=== PATIENT | female | born 1970 | race Caucasian/White ===

== ENCOUNTER 2018-03-07 15:26 | Emergency (ER) | payer OTHER ==
[~2018-03-07 15:26] MED LIST: DIAZ-305 PO; IBUP-136 PO; LORA-802 PO; MOTRIN; NAPR-1043; PRED-1 PO
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
[2018-03-07 16:36] LABS: PLATELET COUNT, AUTOMATED 257 K/uL (150-450)
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
[2018-03-07 18:36] VITALS: BP 130/85
[2018-03-07] MEDS ORDERED: NICOTINE 21 MG/24 HR PATCH TD ONE (18:45)
[2018-03-08] MEDS ORDERED: METH5TAB87 PO (02:31)
[2018-03-08] MEDS ORDERED: NICO-218 TD (11:34)
== END 2018-03-07 19:20 ==
LOC: ER 15:52
DX: F10.920 Alcohol use, unspecified with intoxication, uncomplicated (principal); R45.851 Suicidal ideations; E07.9 Disorder of thyroid, unspecified; E05.00 Thyrotoxicosis with diffuse goiter without thyrotoxic crisis or storm
CPT/HCPCS: 36415; 80305; 80320; 80329; 81001; 82040; 82247; 82310; 82374; 82435; 82565; 82947; 83735; 84075; 84132; 84155; 84295; 84443; 84450; 84460; 84520; 84703; 85025; 99284

== ENCOUNTER 2018-03-07 18:35 | Inpatient (IN) | payer OTHER ==
[~2018-03-07] VITALS: Ht 167.6 cm; Wt 78.0 kg
[2018-03-07] MEDS ORDERED: NICOTINE INH SYSTEM 10 MG/INH INH PRN (20:05)
[2018-03-07] MEDS ORDERED: NICOTINE CARTRIDGE 1 EA PO ONE (20:10)
[2018-03-07] MEDS ORDERED: MAG HYD/AL HYD/SIMETH 30ML UDC PO PRN (23:45)
[2018-03-07] MEDS ORDERED: IBUPROFEN 200 MG TAB PO PRN (23:50)
[2018-03-08] VITALS: BP 114/81
[2018-03-08] MEDS ORDERED: LORazepam 1 MG TAB PO ONE (02:15)
[2018-03-08 02:20] VITALS: BP 121/78
[2018-03-08] MEDS ORDERED: hydrOXYzine 25 MG TAB PO PRN (02:30)
[2018-03-08] MEDS ORDERED: METH5TAB87 PO (02:31)
[2018-03-08] MEDS ORDERED: hydrOXYzine PAMOATE 25 MG CAP PO PRN (02:45)
[2018-03-08] MEDS ORDERED: NICOTINE 21 MG/24 HR PATCH TD SCH (09:00)
[2018-03-08] MEDS ORDERED: MULTIVITAMINS TAB PO SCH (09:00)
[2018-03-08] MEDS ORDERED: THIAMINE HCL 100 MG TAB PO SCH (09:00)
[2018-03-08] MEDS ORDERED: FOLIC ACID 1 MG TAB PO SCH (09:00)
[2018-03-08 09:44] VITALS: BP 131/78
[2018-03-08] MEDS ORDERED: NICO-218 TD (11:34)
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
== END 2018-03-08 12:40 | disposition home or self-care (01) | DRG 882 ==
LOC: BHS 18:35
PROVIDERS: ADMIT Registered Nurse Psychiatric/Mental Health, Adult; ATTEND Registered Nurse Psychiatric/Mental Health, Adult
DX: F43.22 Adjustment disorder with anxiety (principal); R45.851 Suicidal ideations; I10 Essential (primary) hypertension; F17.210 Nicotine dependence, cigarettes, uncomplicated; F10.920 Alcohol use, unspecified with intoxication, uncomplicated; Z62.810 Personal history of physical and sexual abuse in childhood; Y90.8 Blood alcohol level of 240 mg/100 ml or more; Z63.5 Disruption of family by separation and divorce; Z73.3 Stress, not elsewhere classified; Z59.8 Other problems related to housing and economic circumstances
CPT/HCPCS: Q0177

== ENCOUNTER 2018-06-19 00:27 | Day surgery (SDC) | payer OTHER ==
[~2018-06-19] VITALS: Ht 167.6 cm; Wt 77.1 kg
[~2018-06-19 00:27] MED LIST changes: +BUS5 PO; +BUSP7.5T7 PO; +METH5TAB87 PO; +NICO-218 TD
[2018-06-19 06:24] VITALS: BP 145/96
[2018-06-19] MEDS ORDERED: LIDOCAINE/SOD BICARB 8.4% SYR ID ONE (06:30)
[2018-06-19] MEDS ORDERED: NORMOSOL R SOLN(*) 1000 ML BAG 1,000 ML IV PRN (06:30)
[2018-06-19] MEDS ORDERED: FAMOTIDINE 20 MG TAB PO ONE (06:30)
[2018-06-19] MEDS ORDERED: ROPIVACAINE 0.2% 20 ML VIAL ONE (06:53)
[2018-06-19 06:55] LABS: PLATELET COUNT, AUTOMATED 182 K/uL (150-450)
[2018-06-19] MEDS ORDERED: PROPOFOL EMUL(*) 10MG/ML 20 ML 20 ML ONE (07:23)
[2018-06-19] MEDS ORDERED: ROCURONIUM BROM 10 MG/ML 10 ML ONE (07:23)
[2018-06-19] MEDS ORDERED: MIDAZOLAM 2 MG/2 ML VIAL ONE (07:24)
[2018-06-19] MEDS ORDERED: fentaNYL CITR 100 MCG/2 ML AMP ONE (07:34)
[2018-06-19] MEDS ORDERED: KETOROLAC 30 MG/ML VIAL ONE (08:21)
[2018-06-19] MEDS ORDERED: ONDANSETRON 4 MG/2 ML VIAL ONE ×2 (08:21→09:17)
[2018-06-19] MEDS ORDERED: DEXAMETHASONE SOD PHOS 10MG/ML ONE (08:21)
[2018-06-19] MEDS ORDERED: SUGAMMADEX SOD 200 MG/2 ML SDV ONE (08:22)
--- NOTE | 2018-06-19 08:56 | Post Operative Note ---
Operative Note - UNDERWRITING CONSULTANT Operative Day Date: Jun 19, 2018 Time: 08:54 Physicians Surgeon: Moira Anesthesia: IRVING Diagnosis Pre-Op Diagnosis: menorrhagia ovarian cyst sterilization Post-Op Diagnosis: same Procedure Procedure(s): H-scope Novasure ablation L-scope bilateral salpingectomy Specimen Removed:(Maybe N/A): bilateral tubes Complications: [id number] Fluids Fluids: IV crystalloid Estimated Blood Loss: minimal Dictated Date OP Note Dictated: Jun 19, 2018 Time OP Note Dictated: 08:55 Copies to: ARSENIO GUTIERREZ MD ; ARSENIO GUTIERREZ MD Jun 19, 2018 08:56
[2018-06-19] MEDS ORDERED: LR(*) 1000 ML BAG 1,000 ML IV ONE (08:58)
[2018-06-19] MEDS ORDERED: HYDR-385 PO (09:00)
[2018-06-19] MEDS ORDERED: APAP/HYDROCODONE 325/5 TAB PO PRN (09:00)
--- NOTE | 2018-06-19 09:02 | Short(Outpt) Discharge Summary ---
Discharge Summary Reason for Hosp/Final Diag: (1) Admission for sterilization Hospital Course & Plan: bilateral salpingectomy (2) Ovarian cyst Hospital Course & Plan: ANTHONY cystectomy (3) Menorrhagia Hospital Course & Plan: Novasure ablation Departure Discharge to: Home Discharge Instructions Home Meds Active Scripts Hydrocodone Bit/Acetaminophen (HYDROCODON-ACETAMINOPHEN 5-325) 1 Each Tablet, 1- 2 EACH PO Q6H PRN for PAIN, #12 TAB 0 Refills Prov:ARSENIO GUTIERREZ MD 06/19/18 Reported Medications Buspirone Hcl (BUSPIRONE HCL) 7.5 Mg Tablet, 7.5 MG PO BID, TAB 06/09/18 Methimazole (METHIMAZOLE) 5 Mg Tablet, 2.5 MG PO QDAY 03/08/18 Follow up Referrals: [facility] - In Two Weeks @ [facility] with ARSENIO GUTIERREZ MD Diet: Regular Activity: As Tolerated Copies to: ARSENIO GUTIERREZ MD ; Problem Qualifiers (1) Ovarian cyst: Laterality: left Qualified Codes: N83.202 - Unspecified ovarian cyst, left side (2) Menorrhagia: Menorrahagia type: with irregular cycle Qualified Codes: N92.1 - Excessive and frequent menstruation with irregular cycle ARSENIO GUTIERREZ MD Jun 19, 2018 09:02
[2018-06-19 09:54] VITALS: BP 126/50
[2018-06-19 10:00] VITALS: BP 129/93
[2018-06-19 10:10] VITALS: BP 121/98
[2018-06-19 10:11] VITALS: BP 126/93
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
== END 2018-06-19 09:54 | disposition home or self-care (01) ==
LOC: OR 00:27
PROVIDERS: ATTEND Obstetrics & Gynecology
DX: Z30.2 Encounter for sterilization (principal); N83.202 Unspecified ovarian cyst, left side; N92.0 Excessive and frequent menstruation with regular cycle; F41.9 Anxiety disorder, unspecified
CPT/HCPCS: 36415; 58563; 58661; 58662; 80320; 84703; 85025; 88302; J1100; J1885; J2250; J2405; J2704; J2795; J3010; 82040; 82247; 82310; 82374; 82435; 82565; 82947; 84075; 84132; 84155; 84295; 84450; 84460; 84520

== ENCOUNTER → 2018-08-07 | Outpatient (CLI) | payer OTHER ==
[~2018-08-07] MED LIST changes: +HYDR-385 PO
== END ==
LOC: LAB 14:09
PROVIDERS: ATTEND Internal Medicine
DX: E05.00 Thyrotoxicosis with diffuse goiter without thyrotoxic crisis or storm (principal)
CPT/HCPCS: 36415; 82040; 82247; 82310; 82374; 82435; 82565; 82947; 83519; 84075; 84132; 84155; 84295; 84439; 84443; 84450; 84460; 84481; 84520